=== PATIENT | male | born 1955 | race African-American/Black ===

== ENCOUNTER 2017-07-17 16:58 | Inpatient (IN) | payer OTHER ==
[2017-07-17 19:24] VITALS: BMI 35.5
--- NOTE | 2017-07-17 19:24 | HP ---
COWS - Scale Resting Pulse: 1= [place] 81-100 Sweatin= Chills/Flushing Restless Observation: 3= Extraneous Movement Pupil Size: 0= Normal to Room Light Bone or Joint Aches: 2= Severe Diffuse Aches Runny Nose/ Eye Tearin= Runny Nose/Eyes GI Upset > 30mins: 2= Nausea/Diarrhea Tremor Observation: 2= Slight Tremor Visible Yawning Observation: 0= None Anxiety or Irritability: 2=Irritable/Anxious Goose Flesh Skin: 0=Smooth Skin COWS Score: 15 Admission [facility] Chief Complaint: withdrawal sx Allergies/Adverse Reactions: Allergies Allergy/AdvReac Type Severity Reaction Status Date / Time No Known Allergies Allergy Verified 07/17/17 18:47 History of Present Illness: 62 years old male with long history of opiate nicotine dependence has hypertension, bph, asthma, copd, diabetes ii and depression is admitted to detox Exam Limitations: No Limitations - Ebola screening Have you traveled outside of the country in the last 21 days: No Have you had contact with anyone from an Ebola affected area: No Have you been sick,other than usual withdrawal symptoms: No Do you have a fever: No - Review of Systems Constitutional: Changes in sleep, Weight Stable EENT: reports: No Symptoms Reported Respiratory: reports: SOB with Exertion Cardiac: reports: No Symptoms Reported GI: reports: Nausea, Poor Fluid Intake, Abdominal cramping : reports: Incontinence Musculoskeletal: reports: Back Pain, Joint Pain, Muscle Pain, Neck Pain Integumentary: reports: No Symptoms Reported Neuro: reports: Tremors Endocrine: reports: No Symptoms Reported Hematology: reports: No Symptoms Reported Psychiatric: reports: Judgement Intact, Orientated x3, Anxious, Depressed Other Systems: Reviewed and Negative Patient History - Patient Medical History Hx Anemia: No Hx Asthma: Yes Hx Chronic Obstructive Pulmonary Disease (COPD): Yes Hx Cancer: No Hx Cardiac Disorders: No Hx Congestive Heart Failure: No Hx Hypertension: Yes (currently on treatment) Hx Hypercholesterolemia: No Hx Pacemaker: No HX Cerebrovascular Accident: No Hx Seizures: No Hx Dementia: No Hx Diabetes: Yes Hx Gastrointestinal Disorders: Yes Hx Liver Disease: No Hx Genitourinary Disorders: Yes Hx Sexually Transmitted Disorders: No Hx Renal Disease (ESRD): No Hx Thyroid Disease: No Hx Human Immunodeficiency Virus (HIV): No Hx Hepatitis C: Yes (process of treatment) Hx Depression: Yes Hx Suicide Attempt: No Hx Bipolar Disorder: No Hx Schizophrenia: No (schizoaffective disorder) - Patient Surgical History Past Surgical History: Yes Hx Neurologic Surgery: No Hx Cataract Extraction: No Hx Cardiac Surgery: No Hx Lung Surgery: No Hx Breast Surgery: No Hx Breast Biopsy: No Hx Abdominal Surgery: No Hx Appendectomy: No Hx Cholecystectomy: No Hx Genitourinary Surgery: No Hx Orthopedic Surgery: Yes (traumatic amputation tip of left ring finger) Other Surgical History: at age of 17 years Anesthesia Reaction: No - PPD History Previous Implant?: Yes Documented Results: Negative w/proof Implanted On Prior [facility] Admission?: Yes Date: 08/04/12 Results: 0 mm PPD to be Administered?: Yes - Smoking Cessation Smoking history: Current every day smoker Have you smoked in the past 12 months: Yes Aproximately how many cigarettes per day: 5 Cigars Per Day: 0 Hx Chewing Tobacco Use: No Initiated information on smoking cessation: Yes 'Breaking Loose' booklet given: 07/17/17 - Substance & Tx. History Hx Alcohol Use: Yes Hx Substance Use: Yes Substance Use Type: Alcohol, Cocaine Hx Substance Use Treatment: Yes ([facility] - Substances Abused Alcohol Route: Oral Frequency: 1-2 times per week Amount used: LIQUOR- 2 PINTS Age of first use: 17 Date of Last Use: 07/16/17 Heroin Route: Inhalation Frequency: Daily Amount used: 7 BAGS Age of first use: 25 Date of Last Use: 07/17/17 Cocaine Route: Inhalation Frequency: Daily Amount used: $60 Age of first use: 35 Date of Last Use: 07/16/17 Family Disease History - Family Disease History Family Disease History: Heart Disease: Brother, Sister, CA: Mother (uterine/ ), Respiratory: Father (colon/), Other: Father, Mother Admission Physical Exam BHS - Vital Signs Vital Signs: Vital Signs - 24 hr 07/17/17 18:21 Temperature 98.8 F Pulse Rate 84 Respiratory 18 Rate Blood Pressure 130/74 - Physical General Appearance: Yes: Appropriately Dressed, Mild Distress, Obese, Tremorous , Irritable, Sweating, Anxious HEENTM: Yes: Hearing grossly Normal, Normal ENT Inspection, Normocephalic, Normal Voice Respiratory: Yes: Chest Non-Tender, No Respiratory Distress, No Accessory Muscle Use, Wheezing, Hyperresonant Neck: Yes: Supple, Trachea in good position Breast: Yes: Breasts Symetrical Cardiology: Yes: Regular Rhythm, Regular Rate, S1, S2 Abdominal: Yes: Non Tender, Soft, Increased Bowel Sounds Genitourinary: Yes: Within Normal Limits Back: Yes: Normal Inspection Musculoskeletal: Yes: full range of Motion, Gait Steady (cane), Back pain, Muscle Pain, Muscle weakness (legs) Extremities: Yes: Normal Inspection, Normal Range of Motion, Non-Tender, Tremors Neurological: Yes: Fully Oriented, Alert, Motor Strength 5/5, Normal Response, Depressed Affect Integumentary: Yes: Warm Lymphatic: Yes: Within Normal Limits - Diagnostic (1) Nicotine dependence Current Visit: Yes Status: Acute (2) Opioid dependence with withdrawal Current Visit: Yes Status: Acute (3) Asthma Current Visit: Yes Status: Chronic (4) BPH (benign prostatic hyperplasia) Current Visit: Yes Status: Chronic Qualifiers: Lower urinary tract symptom presence: symptoms present Lower urinary tract symptom detail: post-void dribbling Qualified Code(s): N40.1 - Benign prostatic hyperplasia with lower urinary tract symptoms; R35.0 - Frequency of micturition (5) COPD (chronic obstructive pulmonary disease) Current Visit: Yes Status: Chronic Qualifiers: COPD type: emphysema Emphysema type: unilateral Qualified Code(s ): J43.0 - Unilateral pulmonary emphysema [MacLeod's syndrome] (6) Cocaine dependence, uncomplicated Current Visit: Yes Status: Chronic (7) Diabetes mellitus type II, controlled Current Visit: Yes Status: Chronic Qualifiers: Diabetes mellitus complication status: without complication Diabetes mellitus long-term insulin use: without intermediate school teacher use Qualified Code(s): E11.9 - Type 2 diabetes mellitus without complications (8) Essential hypertension Current Visit: Yes Status: Chronic (9) Use of cane as ambulatory aid Current Visit: Yes Status: Chronic (10) Depression (emotion) Current Visit: Yes Status: Suspected Qualifiers: Depression Type: dysthymia Qualified Code(s): F34.1 - Dysthymic disorder (11) Hepatitis C carrier Current Visit: Yes Status: Resolved Comment: resolving Cleared for Admission BHS - Detox or Rehab S Level of Care: Medically Managed Detox Regimen/Protocol: Librium BHS Breath Alcohol Content Breath Alcohol Content: 0 Vital Signs - Height Height: 5 ft 11 in - Weight Weight: 255 lb Weight Measurement Method: Standing Scale Body Mass Index (BMI): 35.5 - Bowel Function Bowel Movement: Yes Urine Drug Screen - Results Drug Screen Negative: No Urine Drug Screen Results: JOSE FRANCISCO-Cocaine, OPI-Opiates
[2017-07-17] MEDS ORDERED: MENTHOL/PHENOL 1 EACH UD MM PRN (19:34)
[2017-07-17] MEDS ORDERED: MAG HYDROX/AL HYDROX/SIMETH 30 ML UNIT-DOSE CUP PO PRN (19:34)
[2017-07-17] MEDS ORDERED: METHADONE HCL 10 MG TABLET (FOR DETOX USE ONLY) PO ONE ×2 (19:34→23:00)
[2017-07-17] MEDS ORDERED: LOPERAMIDE HCL 2 MG CAPSULE PO PRN (19:34)
[2017-07-17] MEDS ORDERED: IBUPROFEN 400 MG TABLET (FP) PO PRN (19:34)
[2017-07-17] MEDS ORDERED: P-EPHED 60MG/TRIPROLIDI 2.5MG TABLET PO PRN (19:34)
[2017-07-17] MEDS ORDERED: ACETAMINOPHEN 325 MG TABLET (FP) PO PRN (19:34)
[2017-07-17] MEDS ORDERED: MAGNESIUM CITRATE 300 ML BOTTLE PO PRN (19:34)
[2017-07-17] MEDS ORDERED: guaiFENesin/D-METHORPHAN HB 10 ML UNIT-DOSE CUPS PO PRN (19:34)
[2017-07-17] MEDS ORDERED: MAGNESIUM HYDROX 2400MG/30ML ORAL SUSPENSION 30 ML CUP PO PRN (19:34)
[2017-07-17] MEDS ORDERED: ALBUTEROL SO4 6.7 GM HFA INHALER IH PRN (19:36)
[2017-07-17] MEDS ORDERED: ALBUTEROL SO4 2.5/IPRATROPIUM 0.5 INH SOL 3 ML VIAL.NEB. NEB PRN (19:37)
[2017-07-17] MEDS ORDERED: GABAPENTIN 300 MG CAPSULE (FP) PO PRN (19:40)
--- NOTE | 2017-07-17 20:22 | HP ---
COWS - Scale Resting Pulse: 1= [place] 81-100 Sweatin= Chills/Flushing Restless Observation: 3= Extraneous Movement Pupil Size: 0= Normal to Room Light Bone or Joint Aches: 2= Severe Diffuse Aches Runny Nose/ Eye Tearin= Runny Nose/Eyes GI Upset > 30mins: 2= Nausea/Diarrhea Tremor Observation: 2= Slight Tremor Visible Yawning Observation: 0= None Anxiety or Irritability: 2=Irritable/Anxious Goose Flesh Skin: 0=Smooth Skin COWS Score: 15 Admission [facility] Chief Complaint: withdrawal sx Allergies/Adverse Reactions: Allergies Allergy/AdvReac Type Severity Reaction Status Date / Time No Known Allergies Allergy Verified 07/17/17 18:47 History of Present Illness: 62 years old male with long history of opiate nicotine dependence has hypertension bph asthma copd diabetes ii and hepatitis c ambulate with cane and depression is admitted to detox Exam Limitations: No Limitations - Ebola screening Have you traveled outside of the country in the last 21 days: No Have you had contact with anyone from an Ebola affected area: No Have you been sick,other than usual withdrawal symptoms: No Do you have a fever: No - Review of Systems Constitutional: Changes in sleep, Weight Stable EENT: reports: Blurred Vision (eye glasses) Respiratory: reports: SOB with Exertion, Productive cough (yellowish) Cardiac: reports: No Symptoms Reported GI: reports: Nausea, Poor Fluid Intake, Abdominal cramping : reports: Incontinence Musculoskeletal: reports: Back Pain, Joint Pain, Muscle Pain, Neck Pain Integumentary: reports: No Symptoms Reported Neuro: reports: Tremors Endocrine: reports: No Symptoms Reported Hematology: reports: No Symptoms Reported Psychiatric: reports: Judgement Intact, Orientated x3, Anxious, Depressed Other Systems: Reviewed and Negative Patient History - Patient Medical History Hx Anemia: No Hx Asthma: Yes Hx Chronic Obstructive Pulmonary Disease (COPD): Yes Hx Cancer: No Hx Cardiac Disorders: No Hx Congestive Heart Failure: No Hx Hypertension: Yes (currently on treatment) Hx Hypercholesterolemia: No Hx Pacemaker: No HX Cerebrovascular Accident: No Hx Seizures: No Hx Dementia: No Hx Diabetes: No Hx Gastrointestinal Disorders: Yes Hx Liver Disease: No Hx Genitourinary Disorders: No Hx Sexually Transmitted Disorders: No Hx Renal Disease (ESRD): No Hx Thyroid Disease: No Hx Human Immunodeficiency Virus (HIV): No Hx Hepatitis C: Yes Hx Depression: Yes Hx Suicide Attempt: No Hx Bipolar Disorder: No Hx Schizophrenia: No (schizoaffective disorder) - Patient Surgical History Past Surgical History: Yes Hx Neurologic Surgery: No Hx Cataract Extraction: No Hx Cardiac Surgery: No Hx Lung Surgery: No Hx Breast Surgery: No Hx Breast Biopsy: No Hx Abdominal Surgery: No Hx Appendectomy: No Hx Cholecystectomy: No Hx Genitourinary Surgery: No Hx Orthopedic Surgery: Yes (traumatic amputation tip of left ring finger) Other Surgical History: at age of 17 years Anesthesia Reaction: No - PPD History Previous Implant?: Yes Documented Results: Negative w/proof Implanted On Prior [facility] Admission?: Yes Date: 08/04/12 Results: 0 mm PPD to be Administered?: Yes - Smoking Cessation Smoking history: Current every day smoker Have you smoked in the past 12 months: Yes Aproximately how many cigarettes per day: 5 Cigars Per Day: 0 Hx Chewing Tobacco Use: No Initiated information on smoking cessation: Yes 'Breaking Loose' booklet given: 07/17/17 - Substance & Tx. History Hx Alcohol Use: No Hx Substance Use: Yes Hx Substance Use Treatment: Yes (2013) - Substances Abused Alcohol Route: Oral Frequency: Daily Amount used: LIQUOR- 2 PINTS Age of first use: 17 Date of Last Use: 07/16/17 Heroin Route: Inhalation Frequency: Daily Amount used: 7 BAGS Age of first use: 25 Date of Last Use: 07/17/17 Cocaine Route: Inhalation Frequency: Daily Amount used: $60 Age of first use: 35 Date of Last Use: 07/16/17 Family Disease History - Family Disease History Family Disease History: CA: Father (colon/), Mother (uterine/), Respiratory: Father, Other: Father Admission Physical Exam BHS - Vital Signs Vital Signs: Vital Signs - 24 hr 07/17/17 18:21 Temperature 98.8 F Pulse Rate 84 Respiratory 18 Rate Blood Pressure 130/74 - Physical General Appearance: Yes: Appropriately Dressed, Mild Distress, Obese, Tremorous , Irritable, Sweating, Anxious HEENTM: Yes: Hearing grossly Normal, Normal ENT Inspection, Normocephalic, Normal Voice Respiratory: Yes: Chest Non-Tender, No Respiratory Distress, No Accessory Muscle Use, Wheezing, Hyperresonant Neck: Yes: Supple, Trachea in good position Breast: Yes: Breasts Symetrical Cardiology: Yes: Regular Rhythm, Regular Rate, S1, S2 Abdominal: Yes: Non Tender, Soft, Increased Bowel Sounds Genitourinary: Yes: Within Normal Limits Back: Yes: Normal Inspection Musculoskeletal: Yes: full range of Motion, Gait Steady, Back pain, Muscle Pain Extremities: Yes: Normal Inspection, Normal Range of Motion, Non-Tender, Tremors Neurological: Yes: Fully Oriented, Alert, Motor Strength 5/5, Normal Response, Depressed Affect Integumentary: Yes: Warm Lymphatic: Yes: Within Normal Limits - Diagnostic (1) Asthma Current Visit: Yes Status: Chronic (2) Essential hypertension Current Visit: Yes Status: Chronic (3) Nicotine dependence Current Visit: Yes Status: Acute (4) BPH (benign prostatic hyperplasia) Current Visit: Yes Status: Chronic Qualifiers: Lower urinary tract symptom presence: symptoms present Lower urinary tract symptom detail: post-void dribbling Qualified Code(s): N40.1 - Benign prostatic hyperplasia with lower urinary tract symptoms; N39.43 - Post- void dribbling (5) Opioid dependence with withdrawal Current Visit: Yes Status: Acute (6) Cocaine dependence, uncomplicated Current Visit: Yes Status: Chronic (7) COPD (chronic obstructive pulmonary disease) Current Visit: Yes Status: Chronic Qualifiers: COPD type: emphysema Emphysema type: unilateral Qualified Code(s ): J43.0 - Unilateral pulmonary emphysema [MacLeod's syndrome] (8) Diabetes mellitus type II, controlled Current Visit: Yes Status: Chronic Qualifiers: Diabetes mellitus complication status: without complication Diabetes mellitus skilled nursing insulin use: without ferry terminal supervisor use Qualified Code(s): E11.9 - Type 2 diabetes mellitus without complications (9) Hepatitis C carrier Current Visit: Yes Status: Resolved Comment: resolving (10) Depression (emotion) Current Visit: Yes Status: Suspected Qualifiers: Depression Type: dysthymia Qualified Code(s): F34.1 - Dysthymic disorder (11) Use of cane as ambulatory aid Current Visit: Yes Status: Chronic Cleared for Admission S - Detox or Rehab [facility] Level of Care: Medically Managed Detox Regimen/Protocol: Methadone [facility] Breath Alcohol Content Breath Alcohol Content: 0 Urine Drug Screen - Results Drug Screen Negative: No Urine Drug Screen Results: JOSE FRANCISCO-Cocaine, OPI-Opiates
[2017-07-17] MEDS: diazePAM 5 MG TABLET PO PRN (20:59)
[2017-07-17] MEDS: NICOTINE POLACRILEX 2 MG GUM BUC PRN (21:38)
[2017-07-17] MEDS: THIAMINE HCL 100 MG TABLET (FP) PO SCH (22:30)
[2017-07-17] MEDS: INSULIN SLIDING SCALE (NOVOLOG) 1 VIAL SQ SCH (22:30)
[2017-07-17] MEDS: BUDESONIDE/FORMETEROL FUMARATE 80/4.5 mcg INHALER IH SCH (22:32)
[2017-07-17 22:39] LABS: URINE APPEARANCE SLCLOUDY; URINE BILIRUBIN NEGATIVE (NEGATIVE); URINE BLOOD NEGATIVE (NEGATIVE); URINE COLOR AMBER; URINE GLUCOSE (UA) NEGATIVE (NEGATIVE); URINE KETONE NEGATIVE (NEGATIVE); URINE NITRITE NEGATIVE (NEGATIVE); URINE PROTEIN NEGATIVE (NEGATIVE); URINE UROBILINOGEN NEGATIVE mg/dL (0.2-1.0)
[2017-07-17 22:44] LABS: URINE LEUK ESTERASE 2+ (NEGATIVE)
[2017-07-17 23:09] LABS: URINE BACTERIA RARE /hpf (NONE SEEN); URINE MUCUS RARE; URINE RBC 4 /hpf (0-3); URINE WBC 20 /hpf (3-5)
[2017-07-18] MEDS: diazePAM 5 MG TABLET PO PRN ×2 (05:22→22:15)
[2017-07-18] MEDS: metFORMIN HCL 500 MG TABLET (FP) PO SCH ×2 (07:31→17:30)
[2017-07-18] MEDS: NICOTINE POLACRILEX 2 MG GUM BUC PRN ×3 (07:32→17:49)
[2017-07-18] MEDS: INSULIN SLIDING SCALE (NOVOLOG) 1 VIAL SQ SCH ×3 (07:43→16:47)
[2017-07-18 09:43] LABS: MCH 29.7 pg (25.7-33.7); MCHC 33.2 g/dl (32.0-35.9); MEAN CELL VOLUME 89.4 fl (80-96); PLATELET COUNT 268 K/MM3 (134-434); RDW 14.8 % (11.9-15.9); WHITE BLOOD COUNT 7.9 K/mm3 (4.0-10.0)
[2017-07-18 09:44] LABS: ALBUMIN 3.7 g/dl (3.4-5.0); ANION GAP 9 (8-16); CALCIUM 8.6 mg/dL (8.5-10.1); CO2 26 mmol/L (21-32); GLUCOSE,RANDOM 173 mg/dL (74-106); SGOT/AST 12 U/L (15-37); SGPT/ALT 32 U/L (12-78)
[2017-07-18 09:46] LABS: ALK PHOS 63 U/L (45-117); BILIRUBIN,TOTAL 0.5 mg/dL (0.2-1.0); CREATININE 0.9 mg/dL (0.7-1.3); TOT PROT 6.4 g/dl (6.4-8.2)
--- NOTE | 2017-07-18 09:59 | EKG ---
Test Reason : Blood Pressure : / mmHG Vent. Rate : 071 BPM Atrial Rate : 071 BPM P-R Int : 162 ms QRS Dur : 098 ms QT Int : 362 ms P-R-T Axes : 071 026 049 degrees QTc Int : 393 ms NORMAL SINUS RHYTHM POSSIBLE LEFT ATRIAL ENLARGEMENT BORDERLINE ECG NO PREVIOUS ECGS AVAILABLE Confirmed by BARBARA CANNON, MIKEY ([id number]) on 07/18/2017 9:58:53 AM Referred By: Eamon Gillespie Confirmed By:MIKEY JIMENEZ MD
[2017-07-18] MEDS ORDERED: METHADONE HCL 10 MG TABLET (FOR DETOX USE ONLY) PO ONE (10:00)
[2017-07-18] MEDS: TAMSULOSIN HCL 0.4 MG CAP.ER.24H (FP) PO SCH (10:24)
[2017-07-18] MEDS: BUDESONIDE/FORMETEROL FUMARATE 80/4.5 mcg INHALER IH SCH ×2 (10:24→22:16)
[2017-07-18] MEDS: LISINOPRIL 10 MG TABLET (FP) PO SCH (10:24)
[2017-07-18] MEDS: PRENATAL VITAMINS W/ FOLIC ACID TABLET (FP) PO SCH (10:24)
[2017-07-18] MEDS: NICOTINE 14 MG/24 HOURS TOPICAL PATCH TD SCH (10:24)
[2017-07-18] MEDS: amLODIPine BESYLATE 5 MG TABLET (FP) PO SCH (10:25)
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
--- NOTE | 2017-07-18 11:16 | PN ---
BHS COWS - Scale Resting Pulse: 0= NE 80 or Below Sweatin= Chills/Flushing Restless Observation: 3= Extraneous Movement Pupil Size: 0= Normal to Room Light Bone or Joint Aches: 4=Acute Joint/Muscle Pain Runny Nose/ Eye Tearin= Nasal Congestion GI Upset > 30mins: 1= Stomach Cramp Tremor Observation of Outstretched Hands: 1= Tremor [place], Not Seen Yawning Observation: 1= 1-2x During Session Anxiety or Irritability: 1=Feels Anxious/Irritable Goose Flesh Skin: 0=Smooth Skin COWS Score: 13 BHS Progress Note (SOAP) Subjective: ANXIETY, SWEATS, LOWER BACK PAIN. Objective: 07/18/17 11:16 Vital Signs Temperature 97.3 F L 07/18/17 09:56 Pulse Rate 69 07/18/17 09:56 Respiratory Rate 18 07/18/17 09:56 Blood Pressure 117/72 07/18/17 09:56 O2 Sat by Pulse Oximetry (%) Laboratory Last Values WBC 7.9 K/mm3 (4.0-10.0) 07/18/17 07:00 RBC 4.34 M/mm3 (4.00-5.60) 07/18/17 07:00 Hgb 12.9 GM/dL (11.7-16.9) 07/18/17 07:00 Hct 38.8 % (35.4-49) 07/18/17 07:00 MCV 89.4 fl (80-96) 07/18/17 07:00 MCH 29.7 pg (25.7-33.7) 07/18/17 07:00 MCHC 33.2 g/dl (32.0-35.9) 07/18/17 07:00 RDW 14.8 % (11.9-15.9) 07/18/17 07:00 Plt Count 268 K/MM3 (134-434) 07/18/17 07:00 MPV 8.0 fl (7.5-11.1) 07/18/17 07:00 Sodium 140 mmol/L (136-145) 07/18/17 07:00 Potassium 3.9 mmol/L (3.5-5.1) 07/18/17 07:00 Chloride 105 mmol/L (98-107) 07/18/17 07:00 Carbon Dioxide 26 mmol/L (21-32) 07/18/17 07:00 Anion Gap 9 (8-16) 07/18/17 07:00 BUN 17 mg/dL (7-18) 07/18/17 07:00 Creatinine 0.9 mg/dL (0.7-1.3) 07/18/17 07:00 Creat Clearance w eGFR > 60 (>60) 07/18/17 07:00 POC Glucometer 115 UNITS (()) 07/18/17 05:20 Random Glucose 173 mg/dL (74-106) H D 07/18/17 07:00 Calcium 8.6 mg/dL (8.5-10.1) 07/18/17 07:00 Total Bilirubin 0.5 mg/dL (0.2-1.0) 07/18/17 07:00 AST 12 U/L (15-37) L D 07/18/17 07:00 ALT 32 U/L (12-78) D 07/18/17 07:00 Alkaline Phosphatase 63 U/L (45-117) 07/18/17 07:00 Total Protein 6.4 g/dl (6.4-8.2) 07/18/17 07:00 Albumin 3.7 g/dl (3.4-5.0) 07/18/17 07:00 Urine Color Yady 07/17/17 21:15 Urine Appearance Slcloudy 07/17/17 21:15 Urine pH 6.0 (5.0-8.0) 07/17/17 21:15 Ur Specific Burns 1.020 (1.005-1.025) 07/17/17 21:15 Urine Protein Negative (NEGATIVE) 07/17/17 21:15 Urine Glucose (UA) Negative (NEGATIVE) 07/17/17 21:15 Urine Ketones Negative (NEGATIVE) 07/17/17 21:15 Urine Blood Negative (NEGATIVE) 07/17/17 21:15 Urine Nitrite Negative (NEGATIVE) 07/17/17 21:15 Urine Bilirubin Negative (NEGATIVE) 07/17/17 21:15 Urine Urobilinogen Negative mg/dL (0.2-1.0) 07/17/17 21:15 Urine RBC 4 /hpf (0-3) 09/12/17 21:15 Urine WBC 20 /hpf (3-5) 07/17/17 21:15 Ur Epithelial Cells Rare /hpf (FEW) 07/17/17 21:15 Urine Bacteria Rare /hpf (NONE SEEN) 07/17/17 21:15 Urine Mucus Rare 07/17/17 21:15 LABS NOTED. Assessment: 07/18/17 11:17 WITHDRAWAL SX Plan: CONTINUE DETOX REPEAT UA;UC
[2017-07-18] MEDS: LIDOCAINE 5% TOPICAL PATCH TP SCH (11:22)
[2017-07-18] MEDS: PATIENT'S OWN MEDICATION (NON-FORMULARY) (Elbasvir/Grazoprevir [Zepatier 50-100 Mg Tablet] PO SCH (17:45)
[2017-07-18] MEDS ORDERED: PRAVASTATIN NA 40 MG TABLET PO SCH (22:00)
[2017-07-18] MEDS: ATORVASTATIN CA 10 MG TABLET (FP) PO SCH (22:15)
[2017-07-18] MEDS: THIAMINE HCL 100 MG TABLET (FP) PO SCH (22:15)
[2017-07-18] MEDS: diphenhydrAMINE HCL 50 MG CAPSULE PO PRN (22:16)
[2017-07-18] MEDS: LIDOCAINE PATCH REMOVAL MC SCH (22:17)
[2017-07-19] MEDS: INSULIN SLIDING SCALE (NOVOLOG) 1 VIAL SQ SCH ×2 (06:57→16:35)
[2017-07-19] MEDS ORDERED: METHADONE HCL 5 MG TABLET (FOR DETOX USE ONLY) PO ONE (10:00)
[2017-07-19] MEDS: TAMSULOSIN HCL 0.4 MG CAP.ER.24H (FP) PO SCH (10:02)
[2017-07-19] MEDS: LISINOPRIL 10 MG TABLET (FP) PO SCH (10:02)
[2017-07-19] MEDS: amLODIPine BESYLATE 5 MG TABLET (FP) PO SCH (10:02)
[2017-07-19] MEDS: NICOTINE 14 MG/24 HOURS TOPICAL PATCH TD SCH (10:03)
[2017-07-19] MEDS: BUDESONIDE/FORMETEROL FUMARATE 80/4.5 mcg INHALER IH SCH ×2 (10:03→22:17)
[2017-07-19] MEDS: PRENATAL VITAMINS W/ FOLIC ACID TABLET (FP) PO SCH (10:03)
[2017-07-19] MEDS: metFORMIN HCL 500 MG TABLET (FP) PO SCH ×2 (10:03→17:30)
[2017-07-19] MEDS: LIDOCAINE 5% TOPICAL PATCH TP SCH (10:03)
--- NOTE | 2017-07-19 11:09 | PN ---
[facility] CIWA - CIWA Score Nausea/Vomitin-No Nausea/No Vomiting Muscle Tremors: 4-Moderate,w/Arms Extend Anxiety: 4-Mod. Anxious/Guarded Agitation: 4-Moderately Restless Paroxysmal Sweats: 1-Minimal Palms Moist Orientation: 0-Oriented Tacttile Disturbances: 3-Moderate Itch/Numb/Burn Auditory Disturbances: 0-None Visual Disturbances: 0-None Headache: 0-None Present CIWA-Ar Total Score: 16 [facility] COWS - Scale Resting Pulse: 0= DE 80 or Below Sweatin= Chills/Flushing Restless Observation: 3= Extraneous Movement Pupil Size: 2= Moderately Dilated Bone or Joint Aches: 4=Acute Joint/Muscle Pain Runny Nose/ Eye Tearin= Nasal Congestion GI Upset > 30mins: 1= Stomach Cramp Tremor Observation of Outstretched Hands: 1= Tremor [place], Not Seen Yawning Observation: 1= 1-2x During Session Anxiety or Irritability: 1=Feels Anxious/Irritable Goose Flesh Skin: 0=Smooth Skin COWS Score: 15 [facility] Progress Note (SOAP) Subjective: ANXIETY,BACK ACHE, SWEATS, INTERMITTENT SLEEP. Objective: 07/19/17 11:07 Vital Signs Temperature 97.8 F 07/19/17 09:57 Pulse Rate 77 07/19/17 09:57 Respiratory Rate 18 07/19/17 09:57 Blood Pressure 135/84 07/19/17 09:57 O2 Sat by Pulse Oximetry (%) Laboratory Last Values WBC 7.9 K/mm3 (4.0-10.0) 07/18/17 07:00 RBC 4.34 M/mm3 (4.00-5.60) 07/18/17 07:00 Hgb 12.9 GM/dL (11.7-16.9) 07/18/17 07:00 Hct 38.8 % (35.4-49) 07/18/17 07:00 MCV 89.4 fl (80-96) 07/18/17 07:00 MCH 29.7 pg (25.7-33.7) 07/18/17 07:00 MCHC 33.2 g/dl (32.0-35.9) 07/18/17 07:00 RDW 14.8 % (11.9-15.9) 07/18/17 07:00 Plt Count 268 K/MM3 (134-434) 07/18/17 07:00 MPV 8.0 fl (7.5-11.1) 07/18/17 07:00 Sodium 140 mmol/L (136-145) 07/18/17 07:00 Potassium 3.9 mmol/L (3.5-5.1) 07/18/17 07:00 Chloride 105 mmol/L (98-107) 07/18/17 07:00 Carbon Dioxide 26 mmol/L (21-32) 07/18/17 07:00 Anion Gap 9 (8-16) 07/18/17 07:00 BUN 17 mg/dL (7-18) 07/18/17 07:00 Creatinine 0.9 mg/dL (0.7-1.3) 07/18/17 07:00 Creat Clearance w eGFR > 60 (>60) 07/18/17 07:00 POC Glucometer 108 UNITS (()) 07/19/17 06:03 Random Glucose 173 mg/dL (74-106) H D 07/18/17 07:00 Calcium 8.6 mg/dL (8.5-10.1) 07/18/17 07:00 Total Bilirubin 0.5 mg/dL (0.2-1.0) 07/18/17 07:00 AST 12 U/L (15-37) L D 07/18/17 07:00 ALT 32 U/L (12-78) D 07/18/17 07:00 Alkaline Phosphatase 63 U/L (45-117) 07/18/17 07:00 Total Protein 6.4 g/dl (6.4-8.2) 07/18/17 07:00 Albumin 3.7 g/dl (3.4-5.0) 07/18/17 07:00 Urine Color Yady 07/17/17 21:15 Urine Appearance Slcloudy 07/17/17 21:15 Urine pH 6.0 (5.0-8.0) 07/17/17 21:15 Ur Specific [place] 1.020 (1.005-1.025) 07/17/17 21:15 Urine Protein Negative (NEGATIVE) 07/17/17 21:15 Urine Glucose (UA) Negative (NEGATIVE) 07/17/17 21:15 Urine Ketones Negative (NEGATIVE) 07/17/17 21:15 Urine Blood Negative (NEGATIVE) 07/17/17 21:15 Urine Nitrite Negative (NEGATIVE) 07/17/17 21:15 Urine Bilirubin Negative (NEGATIVE) 07/17/17 21:15 Urine Urobilinogen Negative mg/dL (0.2-1.0) 07/17/17 21:15 Urine RBC 4 /hpf (0-3) 07/17/17 21:15 Urine WBC 20 /hpf (3-5) 07/17/17 21:15 Ur Epithelial Cells Rare /hpf (FEW) 07/17/17 21:15 Urine Bacteria Rare /hpf (NONE SEEN) 07/17/17 21:15 Urine Mucus Rare 07/17/17 21:15 RPR Titer Nonreactive (NONREACTIVE) 07/18/17 07:00 UC PENDING Assessment: 07/19/17 11:08 WITHDRAWAL SX Plan: CONTINUE DETOX
[2017-07-19] MEDS: NICOTINE POLACRILEX 2 MG GUM BUC PRN ×3 (13:21→22:55)
[2017-07-19] MEDS: PATIENT'S OWN MEDICATION (NON-FORMULARY) (Elbasvir/Grazoprevir [Zepatier 50-100 Mg Tablet] PO SCH (17:43)
[2017-07-19] MEDS: THIAMINE HCL 100 MG TABLET (FP) PO SCH (22:17)
[2017-07-19] MEDS: diphenhydrAMINE HCL 50 MG CAPSULE PO PRN (22:18)
[2017-07-19] MEDS: ATORVASTATIN CA 10 MG TABLET (FP) PO SCH (22:18)
[2017-07-19] MEDS: LIDOCAINE PATCH REMOVAL MC SCH (22:18)
[2017-07-20] MEDS: metFORMIN HCL 500 MG TABLET (FP) PO SCH ×2 (07:11→17:17)
[2017-07-20] MEDS: INSULIN SLIDING SCALE (NOVOLOG) 1 VIAL SQ SCH ×2 (07:12→16:39)
[2017-07-20] MEDS: TAMSULOSIN HCL 0.4 MG CAP.ER.24H (FP) PO SCH (07:41)
[2017-07-20] MEDS ORDERED: METHADONE HCL 10 MG TABLET (FOR DETOX USE ONLY) PO ONE (10:00)
[2017-07-20] MEDS ORDERED: METHADONE HCL 5 MG TABLET (FOR DETOX USE ONLY) PO ONE (10:00)
[2017-07-20] MEDS: amLODIPine BESYLATE 5 MG TABLET (FP) PO SCH (10:23)
[2017-07-20] MEDS: LISINOPRIL 10 MG TABLET (FP) PO SCH (10:23)
[2017-07-20] MEDS: LIDOCAINE 5% TOPICAL PATCH TP SCH (10:23)
[2017-07-20] MEDS: PRENATAL VITAMINS W/ FOLIC ACID TABLET (FP) PO SCH (10:23)
[2017-07-20] MEDS: BUDESONIDE/FORMETEROL FUMARATE 80/4.5 mcg INHALER IH SCH ×2 (10:24→22:18)
[2017-07-20] MEDS: NICOTINE 14 MG/24 HOURS TOPICAL PATCH TD SCH (10:24)
[2017-07-20] MEDS: diazePAM 5 MG TABLET PO PRN ×2 (10:26→17:19)
[2017-07-20] MEDS: NICOTINE POLACRILEX 2 MG GUM BUC PRN ×2 (10:26→21:15)
--- NOTE | 2017-07-20 11:11 | PN ---
[facility] Progress Note (SOAP) Subjective: Sweating,interrupted sleep,restless. Objective: 07/20/17 11:11 Vital Signs - 8 hr 07/20/17 07/20/17 06:21 11:08 Temperature 97.3 F L 97.4 F L Pulse Rate 69 81 Respiratory 18 18 Rate Blood Pressure 126/77 116/77 Laboratory Last Values WBC 7.9 K/mm3 (4.0-10.0) 07/18/17 07:00 RBC 4.34 M/mm3 (4.00-5.60) 07/18/17 07:00 Hgb 12.9 GM/dL (11.7-16.9) 07/18/17 07:00 Hct 38.8 % (35.4-49) 07/18/17 07:00 MCV 89.4 fl (80-96) 07/18/17 07:00 MCH 29.7 pg (25.7-33.7) 07/18/17 07:00 MCHC 33.2 g/dl (32.0-35.9) 07/18/17 07:00 RDW 14.8 % (11.9-15.9) 07/18/17 07:00 Plt Count 268 K/MM3 (134-434) 07/18/17 07:00 MPV 8.0 fl (7.5-11.1) 07/18/17 07:00 Sodium 140 mmol/L (136-145) 07/18/17 07:00 Potassium 3.9 mmol/L (3.5-5.1) 07/18/17 07:00 Chloride 105 mmol/L (98-107) 07/18/17 07:00 Carbon Dioxide 26 mmol/L (21-32) 07/18/17 07:00 Anion Gap 9 (8-16) 07/18/17 07:00 BUN 17 mg/dL (7-18) 07/18/17 07:00 Creatinine 0.9 mg/dL (0.7-1.3) 07/18/17 07:00 Creat Clearance w eGFR > 60 (>60) 07/18/17 07:00 POC Glucometer 152 UNITS (()) 07/20/17 05:40 Random Glucose 173 mg/dL (74-106) H D 07/18/17 07:00 Calcium 8.6 mg/dL (8.5-10.1) 07/18/17 07:00 Total Bilirubin 0.5 mg/dL (0.2-1.0) 07/18/17 07:00 AST 12 U/L (15-37) L D 07/18/17 07:00 ALT 32 U/L (12-78) D 07/18/17 07:00 Alkaline Phosphatase 63 U/L (45-117) 07/18/17 07:00 Total Protein 6.4 g/dl (6.4-8.2) 07/18/17 07:00 Albumin 3.7 g/dl (3.4-5.0) 07/18/17 07:00 Urine Color Yady 07/17/17 21:15 Urine Appearance Slcloudy 07/17/17 21:15 Urine pH 6.0 (5.0-8.0) 07/17/17 21:15 Ur Specific [place] 1.020 (1.005-1.025) 07/17/17 21:15 Urine Protein Negative (NEGATIVE) 07/17/17 21:15 Urine Glucose (UA) Negative (NEGATIVE) 07/17/17 21:15 Urine Ketones Negative (NEGATIVE) 07/17/17 21:15 Urine Blood Negative (NEGATIVE) 07/17/17 21:15 Urine Nitrite Negative (NEGATIVE) 07/17/17 21:15 Urine Bilirubin Negative (NEGATIVE) 07/17/17 21:15 Urine Urobilinogen Negative mg/dL (0.2-1.0) 07/17/17 21:15 Urine RBC 4 /hpf (0-3) 07/17/17 21:15 Urine WBC 20 /hpf (3-5) 07/17/17 21:15 Ur Epithelial Cells Rare /hpf (FEW) 07/17/17 21:15 Urine Bacteria Rare /hpf (NONE SEEN) 07/17/17 21:15 Urine Mucus Rare 07/17/17 21:15 RPR Titer Nonreactive (NONREACTIVE) 07/18/17 07:00 labs noted Assessment: 07/20/17 11:11 Withdrawal sx. Plan: Continue detox
[2017-07-20] MEDS: PATIENT'S OWN MEDICATION (NON-FORMULARY) (Elbasvir/Grazoprevir [Zepatier 50-100 Mg Tablet] PO SCH (17:26)
[2017-07-20] MEDS: LIDOCAINE PATCH REMOVAL MC SCH (22:18)
[2017-07-20] MEDS: THIAMINE HCL 100 MG TABLET (FP) PO SCH (22:18)
[2017-07-20] MEDS: ATORVASTATIN CA 10 MG TABLET (FP) PO SCH (22:18)
[2017-07-21] MEDS ORDERED: METHADONE HCL 5 MG TABLET (FOR DETOX USE ONLY) PO ONE (06:00)
[2017-07-21 06:35] VITALS: BP 107/70; PULSE 68; TEMP 97.7
[2017-07-21] MEDS: metFORMIN HCL 500 MG TABLET (FP) PO SCH (06:38)
[2017-07-21] MEDS: INSULIN SLIDING SCALE (NOVOLOG) 1 VIAL SQ SCH (06:39)
[2017-07-21] MEDS ORDERED: METHADONE HCL 10 MG TABLET (FOR DETOX USE ONLY) PO ONE (10:00)
--- NOTE | 2017-07-21 20:11 | DS ---
[facility] Detox Discharge Summary Admission Date: 07/17/17 Discharge Date: 07/21/17 - History Present History: Alcohol Dependence, Cocaine Dependence, Opioid Dependence Additional Comments: PT. ADVISED TO FOLLOW-UP WITH OUTPATIENT 12-STEP / NA / AA SUPPORT GROUP PROGRAM FOR AFTER CARE. PATIENT WAS DISCHARGED FROM DETOX UNIT IN STABLE MEDICAL CONDITION. Pertinent Past History: Asthma, HTN, Type II, DM, COPD (Emphysema), Hep C, Insomnia, Schizoaffective Disorder, BPH, GERD, Use of Cane as Ambulatory Aid. - Physical Exam Results Vital Signs: Vital Signs Temperature 97.7 F 07/21/17 06:34 Pulse Rate 68 07/21/17 06:34 Respiratory Rate 18 07/21/17 06:34 Blood Pressure 107/70 07/21/17 06:34 O2 Sat by Pulse Oximetry (%) Pertinent Admission Physical Exam Findings: WITHDRAWAL SYMPTOMS. Laboratory Tests 07/17/17 07/17/17 07/17/17 19:25 21:15 21:40 WBC RBC Hgb Hct MCV MCH MCHC RDW Plt Count MPV Sodium Potassium Chloride Carbon Dioxide Anion Gap BUN Creatinine Creat Clearance w eGFR POC Glucometer 116 117 Random Glucose Calcium Total Bilirubin AST ALT Alkaline Phosphatase Total Protein Albumin Urine Color Yady Urine Appearance Slcloudy Urine pH 6.0 Ur Specific [place] 1.020 Urine Protein Negative Urine Glucose (UA) Negative Urine Ketones Negative Urine Blood Negative Urine Nitrite Negative Urine Bilirubin Negative Urine Urobilinogen Negative Urine RBC 4 Urine WBC 20 Ur Epithelial Cells Rare Urine Bacteria Rare Urine Mucus Rare RPR Titer 07/18/17 07/18/17 07/18/17 05:20 07:00 07:00 WBC 7.9 RBC 4.34 Hgb 12.9 Hct 38.8 MCV 89.4 MCH 29.7 MCHC 33.2 RDW 14.8 Plt Count 268 MPV 8.0 Sodium 140 Potassium 3.9 Chloride 105 Carbon Dioxide 26 Anion Gap 9 BUN 17 Creatinine 0.9 Creat Clearance w eGFR > 60 POC Glucometer 115 Random Glucose 173 H D Calcium 8.6 Total Bilirubin 0.5 AST 12 L D ALT 32 D Alkaline Phosphatase 63 Total Protein 6.4 Albumin 3.7 Urine Color Urine Appearance Urine pH Ur Specific [place] Urine Protein Urine Glucose (UA) Urine Ketones Urine Blood Urine Nitrite Urine Bilirubin Urine Urobilinogen Urine RBC Urine WBC Ur Epithelial Cells Urine Bacteria Urine Mucus RPR Titer 07/18/17 07/18/17 07/18/17 07:00 11:21 16:15 WBC RBC Hgb Hct MCV MCH MCHC RDW Plt Count MPV Sodium Potassium Chloride Carbon Dioxide Anion Gap BUN Creatinine Creat Clearance w eGFR POC Glucometer 162 115 Random Glucose Calcium Total Bilirubin AST ALT Alkaline Phosphatase Total Protein Albumin Urine Color Urine Appearance Urine pH Ur Specific [place] Urine Protein Urine Glucose (UA) Urine Ketones Urine Blood Urine Nitrite Urine Bilirubin Urine Urobilinogen Urine RBC Urine WBC Ur Epithelial Cells Urine Bacteria Urine Mucus RPR Titer Nonreactive 07/19/17 07/19/17 07/20/17 06:03 16:15 05:40 WBC RBC Hgb Hct MCV MCH MCHC RDW Plt Count MPV Sodium Potassium Chloride Carbon Dioxide Anion Gap BUN Creatinine Creat Clearance w eGFR POC Glucometer 108 124 152 Random Glucose Calcium Total Bilirubin AST ALT Alkaline Phosphatase Total Protein Albumin Urine Color Urine Appearance Urine pH Ur Specific [place] Urine Protein Urine Glucose (UA) Urine Ketones Urine Blood Urine Nitrite Urine Bilirubin Urine Urobilinogen Urine RBC Urine WBC Ur Epithelial Cells Urine Bacteria Urine Mucus RPR Titer 07/20/17 07/21/17 16:28 05:49 WBC RBC Hgb Hct MCV MCH MCHC RDW Plt Count MPV Sodium Potassium Chloride Carbon Dioxide Anion Gap BUN Creatinine Creat Clearance w eGFR POC Glucometer 119 95 Random Glucose Calcium Total Bilirubin AST ALT Alkaline Phosphatase Total Protein Albumin Urine Color Urine Appearance Urine pH Ur Specific [place] Urine Protein Urine Glucose (UA) Urine Ketones Urine Blood Urine Nitrite Urine Bilirubin Urine Urobilinogen Urine RBC Urine WBC Ur Epithelial Cells Urine Bacteria Urine Mucus RPR Titer LABS NOTED. - Treatment Hospital Course: Detox Protocol Followed, Detoxed Safely, Responded well, Discharged Condition Good Patient has Accepted a Rehab Referral to: PT. ADVISED TO FOLLOW-UP WITH LOCAL 12 -STEP/NA/AA OUTPATIENT SUPPORT GROUP. - Medication Discharge Medications: Ambulatory Orders Albuterol Sulfate Inhaler - [Ventolin HFA Inhaler -] 2 inh PO Q4H PRN #1 inh 07/19 Tamsulosin HCl [Flomax -] 0.4 mg PO HS #30 cap.er.24h 04/13/14 Amlodipine Besylate [Norvasc -] 5 mg PO DAILY 07/17/17 Elbasvir/Grazoprevir [Zepatier 50-100 mg Tablet] 1 each PO DAILY@1800 07/17/17 Gabapentin [Neurontin -] 300 mg PO TID 07/17/17 Lisinopril [Prinivil -] 10 mg PO DAILY 07/17/17 Meloxicam [Mobic (Nf) -] 15 mg PO DAILY 07/17/17 Metformin HCl [Glucophage -] 1,000 mg PO DAILY 07/17/17 Pravastatin Sodium [Pravachol (Nf)] 20 mg PO HS 07/17/17 - Diagnosis (1) Alcohol dependence Status: Acute (2) Cocaine dependence, uncomplicated Status: Acute (3) Insomnia Status: Acute Qualifiers: Insomnia type: unspecified Qualified Code(s): G47.00 - Insomnia, unspecified (4) Nicotine dependence Status: Chronic (5) Opioid dependence with withdrawal Status: Acute (6) Asthma Status: Chronic (7) BPH (benign prostatic hyperplasia) Status: Chronic Qualifiers: Lower urinary tract symptom presence: symptoms present Lower urinary tract symptom detail: post-void dribbling Qualified Code(s): N40.1 - Benign prostatic hyperplasia with lower urinary tract symptoms; R35.0 - Frequency of micturition (8) COPD (chronic obstructive pulmonary disease) Status: Chronic Qualifiers: COPD type: emphysema Emphysema type: unilateral Qualified Code(s ): J43.0 - Unilateral pulmonary emphysema [MacLeod's syndrome] (9) Diabetes mellitus type II, controlled Status: Chronic Qualifiers: Diabetes mellitus complication status: without complication Diabetes mellitus meterman insulin use: without meterman use Qualified Code(s): E11.9 - Type 2 diabetes mellitus without complications (10) Essential hypertension Status: Chronic (11) Use of cane as ambulatory aid Status: Chronic (12) Depression (emotion) Status: Suspected Qualifiers: Depression Type: dysthymia Qualified Code(s): F34.1 - Dysthymic disorder - AMA Did Patient Leave Against Medical Advice: No
[2017-07-22] MEDS ORDERED: METHADONE HCL 5 MG TABLET (FOR DETOX USE ONLY) PO ONE (06:00)
== END 2017-07-21 08:40 | disposition home or self-care (01) | DRG 773 ==
LOC: YASAS 16:58 → Y3N 19:02
PROVIDERS: ADMIT Internal Medicine; ATTEND Internal Medicine
PROC: HZ2ZZZZ Detoxification Services for Substance Abuse Treatment (ICD-10-PCS; principal; 2017-07-17)
DX: F11.23 Opioid dependence with withdrawal (principal); F10.230 Alcohol dependence with withdrawal, uncomplicated; F34.1 Dysthymic disorder; G47.00 Insomnia, unspecified; N40.0 Benign prostatic hyperplasia without lower urinary tract symptoms; J45.909 Unspecified asthma, uncomplicated; J43.0 Unilateral pulmonary emphysema [MacLeod's syndrome]; I10 Essential (primary) hypertension; E11.9 Type 2 diabetes mellitus without complications; Z79.84 Long term (current) use of oral hypoglycemic drugs; R26.89 Other abnormalities of gait and mobility; Z99.89 Dependence on other enabling machines and devices
CPT/HCPCS: 36415; 80053; 81003; 81015; 85027; 86593; 87086; 93005; 93010